=== PATIENT | female | born 1985 | race Two or more races ===

== ENCOUNTER 2023-09-25 15:12 | Observation (INO) ==
[2023-09-25 16:37] LABS: ABS Eosinophils 0.3 10^3/uL (0.0-0.5); ABS Lymphocytes 3.4 10^3/uL (1.0-4.8); ABS Monocytes 0.6 10^3/uL (0.0-0.9); ABS Neutrophils 4.7 10^3/uL (1.5-7.6); ABS Nucleated RBC 0.01 10^3/ul; Eosinophil % 2.9 %; Hematocrit 35.2 % (35-45); Hemoglobin 12.2 g/dL (11.5-14.3); Lymphocyte % 37.7 %; Mean Corpuscular Hemoglobin 28.6 pg (27-33); Mean Corpuscular Hgb Conc 34.6 g/dL (31-36); Mean Corpuscular Volume 82.7 fL (80-97); Mean Platelet Volume 8.4 fL (7.5-11.2); Nucleated Red Blood Cells % 0.1 %/100WBC (0.0-0.8); Platelet Count 324 10^3/uL (150-450); Red Blood Count 4.26 10^6/uL (3.63-4.92); Red Cell Distribution Width 14.1 % (12-17)
[2023-09-25 17:11] LABS: Anion Gap 12 mmol/L (2-16); Blood Urea Nitrogen 10 mg/dL (6-24); CO2 Carbon Dioxide 27 mmol/L (22-32); Calcium 9.4 mg/dL (8.6-10.3); Chloride 102 mmol/L (101-111); Creatinine, Serum 0.74 mg/dL (0.51-0.95); Glucose 92 mg/dL (70-100); Potassium 4.1 mmol/L (3.5-5.0); Sodium 141 mmol/L (135-145); eGFR CKD-EPI 107.5 (>60)
[2023-09-25 17:14] LABS: HCG Pregnancy < 0.60 mIU/mL
[2023-09-25] MEDS: Iohexol 350 (CONTRAST) 500 ML MDV IV ONE (20:15)
[2023-09-26 06:49] LABS: HDL Cholesterol 56.3 mg/dL
[2023-09-26 10:42] VITALS: BP 102/71
== END 2023-09-26 11:37 | disposition home or self-care (01) ==
LOC: EDHOLD 15:12 → ED 15:12 → SUATTDRO 20:03 → MEDTELE 22:25
PROVIDERS: ADMIT Internal Medicine; ATTEND Student in an Organized Health Care Education/Training Program